=== PATIENT | female | born 1965 | race American Indian/Alaskan Native ===

== ENCOUNTER 2020-02-27 18:38 | Emergency (ER) | payer SELFPAY ==
[2020-02-27] MEDS ORDERED: CLINDAMYCIN 300 MG CAP PO ONE (20:05)
[2020-02-27] MEDS ORDERED: HYDROcodone/ACETAMINOPHEN 5-325 MG TAB PO ONE (20:05)
[2020-02-27] MEDS ORDERED: DIPHtheria,PERTUSSIS(ACELL),TETANUS VACCINE/PF 0.5 ML VIAL IM ONE (20:05)
--- NOTE | 2020-02-27 20:35 | Emergency Department Report ---
ED Animal Bite HPI - General Chief Complaint: Animal Bite Stated Complaint: HAND LAC Time Seen by Provider: 02/27/20 20:04 Source: patient Mode of arrival: Ambulatory Limitations: No Limitations - History of Present Illness Initial Comments: Ms Arredondo is a 55 y/o aaf who presents for dog bite left wrist versus her sisters house dog tonight, she states bit her while she was playing with her, she suprised dog and dog snapped at her wrist causing puncture wounds x 2 to left wrist. Dog has had all shots, incident happened approximately 3 hrs ago. There is no bleeding no muscle tendon or muscle damage. MD Complaint: animal bite Onset/Timin -: hour(s) Left: Forearm Animal: dog Animal Control Notified: Yes Description: household pet Mechanism: bite Pain Description: sharp, constant Severity scale (0 -10): 4 Context: playing with animal Associated Symptoms: none Treatments Prior to Arrival: irrigation - Related Data Patient Tetanus UTD: No Previous Rx's Medication Instructions Recorded Last Taken Type Clindamycin [Clindamycin CAP] 300 mg PO Q8H 10 Days #30 cap 02/27/20 Unknown Rx Neomycn/Bacitrc/Polymyx/Pramox 1 applicatio TP BID 14 Days #1 tube 02/27/20 Unknown Rx [Neosporin + Pain Relief Oint] traMADoL [Ultram] 50 mg PO Q6HR PRN #12 tablet 02/27/20 Unknown Rx Allergies Allergy/AdvReac Type Severity Reaction Status Date / Time Penicillins Allergy Unknown Verified 02/27/20 18:53 ED Review of Systems ROS: Stated complaint: HAND LAC Other details as noted in HPI Constitutional: denies: chills, fever Eyes: denies: eye pain, eye discharge, vision change ENT: denies: ear pain, throat pain Respiratory: denies: cough, shortness of breath, wheezing Cardiovascular: denies: chest pain, palpitations Endocrine: no symptoms reported Gastrointestinal: denies: abdominal pain, nausea, diarrhea Genitourinary: denies: urgency, dysuria, discharge Musculoskeletal: other (puncture wound left wrist forearm ). denies: back pain, joint swelling, arthralgia Skin: denies: rash, lesions Neurological: denies: headache, weakness, paresthesias Psychiatric: denies: anxiety, depression Hematological/Lymphatic: denies: easy bleeding, easy bruising ED Past Medical Hx - Past Medical History Previous Medical History?: No - Surgical History Past Surgical History?: Yes Additional Surgical History: C section - Social History Smoking Status: Never Smoker Substance Use Type: None - Medications Home Medications: Home Medications Medication Instructions Recorded Confirmed Last Taken Type Clindamycin [Clindamycin CAP] 300 mg PO Q8H 10 Days #30 cap 02/27/20 Unknown Rx Neomycn/Bacitrc/Polymyx/Pramox 1 applicatio TP BID 14 Days #1 tube 02/27/20 Unknown Rx [Neosporin + Pain Relief Oint] traMADoL [Ultram] 50 mg PO Q6HR PRN #12 tablet 02/27/20 Unknown Rx ED Physical Exam - General Limitations: No Limitations General appearance: alert, in no apparent distress - Head Head exam: Present: atraumatic, normocephalic - Eye Eye exam: Present: normal appearance, EOMI - ENT ENT exam: Present: mucous membranes moist - Neck Neck exam: Present: normal inspection - Respiratory Respiratory exam: Present: normal lung sounds bilaterally. Absent: respiratory distress, wheezes - Cardiovascular Cardiovascular Exam: Present: regular rate, normal rhythm, normal heart sounds. Absent: systolic murmur, diastolic murmur, rubs, gallop - GI/Abdominal GI/Abdominal exam: Present: soft, normal bowel sounds. Absent: distended, tenderness - Rectal Rectal exam: Present: deferred - Extremities Exam Extremities exam: Present: normal inspection, full ROM, normal capillary refill. Absent: tenderness, joint swelling - Expanded Upper Extremity Exam Left Forearm Wrist exam: Present: full ROM, pain with axial thumb loading, other. Absent: tenderness, swelling, abrasion, ecchymosis, deformity, crepidus, dislocation, erythema, tenderness over anatomical snuff box Hand Wrist exam: Present: full ROM. Absent: tenderness, swelling, abrasion, laceration, ecchymosis, deformity, crepidus, dislocation, erythema, nail avulsion, subungual hematoma Neuro motor exam: Present: wrist extension intact, thumb opposition intact, thumb IP flexion intact, thumb adduction intact, fingers 2-5 abduction intact Neurosensory exam: Present: 2-point discrimination, radial nerve intact Vascular: Present: normal capillary refill - Back Exam Back exam: Present: normal inspection, full ROM. Absent: tenderness, CVA tenderness (R), CVA tenderness (L) - Neurological Exam Neurological exam: Present: alert, oriented X3, CN II-XII intact, normal gait, reflexes normal. Absent: motor sensory deficit - Expanded Neurological Exam Expanded Motor strength exam: RUE: 5, LUE: 5 Best Eye Response ([place]): (4) open spontaneously Best Motor Response ([place]): (6) obeys commands Best Verbal Response ([place]): (5) oriented [place] Total: 15 - Psychiatric Psychiatric exam: Present: normal affect, normal mood - Skin Skin exam: Present: warm, dry, intact, normal color. Absent: rash ED Course - Reevaluation(s) Reevaluation #1: wound irrigated with copious soap and water, rom intact no nerve tendon or muscle damage, given tetanus, nsaids, will dc with rx for clindamycin pt is pcn allergic given wound care instructions pt verbalized agreement and understanding of same. dc 'd to home in stable condition at this time. 02/27/20 20:43 Critical care attestation.: If time is entered above; I have spent that time in minutes in the direct care of this critically ill patient, excluding procedure time. ED Disposition Clinical Impression: Dog bite of left arm Qualifiers: Encounter type: initial encounter Qualified Code(s): S41.152A - Open bite of le ft upper arm, initial encounter; W54.0XXA - Bitten by dog, initial encounter Disposition: DC-01 TO HOME OR SELFCARE Is pt being admited?: No Does the pt Need Aspirin: No Condition: Stable Instructions: Animal Bite (ED) Prescriptions: Clindamycin [Clindamycin CAP] 300 mg PO Q8H 10 Days #30 cap Neomycn/Bacitrc/Polymyx/Pramox [Neosporin + Pain Relief Oint] 1 applicatio TP BID 14 Days #1 tube traMADoL [Ultram] 50 mg PO Q6HR PRN #12 tablet PRN Reason: Pain Referrals: FELISHA DURBIN MD [Staff Physician] - 3-5 Days Forms: Work/School Release Form(ED) Time of Disposition: 20:48
== END 2020-02-27 21:01 | disposition home or self-care (01) ==
LOC: ED 18:38
DX: S61.532A Puncture wound without foreign body of left wrist, initial encounter (principal); Z98.890 Other specified postprocedural states; Z88.0 Allergy status to penicillin; Z79.899 Other long term (current) drug therapy; W54.0XXA Bitten by dog, initial encounter; Y93.89 Activity, other specified; Y92.89 Other specified places as the place of occurrence of the external cause; Y99.8 Other external cause status
CPT/HCPCS: 90471; 90715; 99282